=== PATIENT | male | born 1995 | race Caucasian/White ===

== ENCOUNTER 2022-12-28 04:05 | Emergency (ER) | payer MEDICAID, OTHER ==
[2022-12-28] MEDS ORDERED: Ondansetron 4 MG/2 ML SDV IVPUSH ONE (04:32)
[2022-12-28] MEDS ORDERED: Sodium Chloride 0.9% 10 ML Syringe FLUSH PRN (04:32)
[2022-12-28] MEDS ORDERED: Ketorolac 60 MG/2 ML SDV IVPUSH ONE (04:33)
[2022-12-28 04:39] LABS: BASOPHILS ABSOLUTE AUTO 0.03 K/uL (0.02-0.10); BASOPHILS PERCENT AUTO 0.3 % (0.0-0.5); EOSINOPHILS ABSOLUTE AUTO 0.44 K/uL (0.04-0.40); EOSINOPHILS PERCENT AUTO 3.9 % (1.0-5.0); HEMATOCRIT 41.2 % (40.0-54.0); HEMOGLOBIN 13.7 g/dL (13.0-18.0); LYMPHOCYTES ABSOLUTE AUTO 3.77 K/uL (1.50-4.00); LYMPHOCYTES PERCENT AUTO 33.7 % (20.0-40.0); MEAN CORPUSCULAR HGB CONC 33.3 g/dL (31.0-35.0); MEAN CORPUSCULAR VOLUME 87 fL (76-96); MEAN PLATELET VOLUME 9.9 fL (6.0-10.0); MONOCYTES ABSOLUTE AUTO 0.68 K/uL (0.20-0.80); MONOCYTES PERCENT AUTO 6.1 % (3.0-10.0); NEUTROPHILS ABSOLUTE AUTO 6.27 K/uL (2.00-7.50); PLATELET COUNT,PLT 327 K/uL (150-400); RED BLOOD CELL COUNT 4.72 M/uL (4.50-6.50); RED CELL DISTRIBUTION WIDTH 13.5 % (11.0-16.0); WHITE BLOOD CELL COUNT,WBC 11.2 K/uL (4.0-11.0)
[2022-12-28 04:41] LABS: APPEARANCE,URINE CLEAR (CLEAR); BILIRUBIN,URINE NEGATIVE (NEGATIVE); COLOR,URINE YELLOW; GLUCOSE,URINE NEGATIVE (NEGATIVE); KETONES,URINE NEGATIVE (NEGATIVE); LEUKOCYTE ESTERASE,URINE NEGATIVE (NEGATIVE); NITRITE,URINE NEGATIVE (NEGATIVE); OCCULT BLOOD,URINE NEGATIVE (NEGATIVE); PROTEIN,URINE NEGATIVE (NEGATIVE); UROBILINOGEN,URINE 0.2 E.U./dL (0.2-1.0)
[2022-12-28] MEDS ORDERED: Sodium Chloride 0.9% 1,000 ML IV SCH (04:45)
[2022-12-28] MEDS ORDERED: HYDROmorphone 2 MG/ML Syringe SUBCUT SCH (04:45)
[2022-12-28 04:49] LABS: AMPHETAMINES SCREEN, URINE NEGATIVE (NEGATIVE); BARBITURATE SCREEN,URINE NEGATIVE (NEGATIVE); BENZODIAZEPINES SCREEN,URINE NEGATIVE (NEGATIVE); METHADONE SCREEN, URINE NEGATIVE (NEGATIVE); METHAMPHETAMINES SCREEN, URINE NEGATIVE (NEGATIVE); OXYCODONE SCREEN,URINE NEGATIVE (NEGATIVE); THC SCREEN,URINE 50 NG/ML POSITIVE (NEGATIVE)
[2022-12-28 04:50] LABS: A/G RATIO 1.1 (0.8-2.0); ALBUMIN 3.2 g/dL (3.4-5.0); AMORPHOUS SEDIMENT,URINE MODERATE /HPF; ANION GAP 11.1 mmol/L (5.0-15.0); BILIRUBIN TOTAL 0.2 mg/dL (0.0-1.0); BUN/CREATININE RATIO 14.9 (6-25); CALCIUM 8.6 mg/dL (8.5-10.1); CARBON DIOXIDE,CO2 30.7 mmol/L (21.0-32.0); CREATININE 0.87 mg/dL (0.70-1.30); EST CRCL DRUG DOSING (CG) 133.43 mL/min; POTASSIUM,K 3.8 mmol/L (3.5-5.1); PROTEIN TOTAL,TP 6.2 g/dL (6.4-8.2); RBC,URINE NOT SEEN /HPF; WBC,URINE NOT SEEN /HPF
[2022-12-28] MEDS: Ketorolac 30 MG/ML SDV ONE ×2 (04:57→05:05)
== END 2022-12-28 06:40 | disposition home or self-care (01) ==
LOC: LB.ED 04:05
DX: K80.50 Calculus of bile duct without cholangitis or cholecystitis without obstruction (principal); Z88.0 Allergy status to penicillin
CPT/HCPCS: 36415; 74176; 80053; 80307; 81001; 85025; 96372; 96374; 96375; 99284; J1170; J1885; J2405; J7030